=== PATIENT | male | born 1965 | race Caucasian/White ===

== ENCOUNTER 2024-05-01 11:18 | Emergency (ER) | payer BC ==
[~2024-05-01] VITALS: Ht 172.7 cm; Wt 74.8 kg
[2024-05-01 11:54] LABS: BASOPHILS # (AUTO) 0.1 K/UL (0.0-0.2); BASOPHILS % (AUTO) 0.9 % (0.0-2.0); EOSINOPHILS # (AUTO) 0.1 K/uL (0.0-0.7); EOSINOPHILS % (AUTO) 1.2 % (0.0-7.0); HEMATOCRIT 42.9 % (36.7-47.1); HEMOGLOBIN 14.6 g/dL (12.5-16.3); LYMPHOCYTES # (AUTO) 1.1 K/uL (0.8-4.8); LYMPHOCYTES % (AUTO) 15.3 % (20.5-51.5); MEAN CORPUSCULAR HEMOGLOBIN 29.7 uug (23.8-33.4); MEAN CORPUSCULAR HGB CONC 34 g/dL (32.5-36.3); MEAN CORPUSCULAR VOLUME 87.2 fL (73.0-96.2); MONOCYTES # (AUTO) 0.4 K/uL (0.1-1.30); MONOCYTES % (AUTO) 5.3 % (0.0-11.0); NEUTROPHILS # (AUTO) 5.7 K/uL (1.8-8.9); NEUTROPHILS % (AUTO) 77.3 % (38.5-71.5); PLATELET COUNT (AUTO) 257 K/uL (152-348); RED BLOOD CELL COUNT(AUTO) 4.93 MIL/uL (4.06-5.63); RED CELL DISTRIBUTION WIDTH 12.8 % (12.1-16.2); WHITE BLOOD COUNT (AUTO) 7.4 K/uL (3.6-10.2)
[2024-05-01 11:56] LABS: CALCIUM 8.7 mg/dL (8.5-10.1); CARBON DIOXIDE 29 mmol/L (21-32); CHLORIDE 102 mmol/L (98-107); CREATININE 0.8 mg/dL (0.6-1.3); POTASSIUM 3.9 mmol/L (3.5-5.1); SODIUM SERUM 137 mmol/L (136-145); UREA NITROGEN, BLOOD 19 mg/dL (7-18)
[2024-05-01 11:57] LABS: DIFFERENTIAL COMMENT 1
[2024-05-01] MEDS ORDERED: AMLO10TA4 PO (11:58)
[2024-05-01] MEDS ORDERED: VALS80TA2 PO (11:58)
[2024-05-01 12:02] LABS: GLUCOSE 434 mg/dL (74-106)
[2024-05-01 12:10] LABS: ALANINE AMINOTRANSFERASE 15 U/L (16-63); ALBUMIN 3.5 g/dL (3.4-5.0); ALKALINE PHOSPHATASE 102 U/L (50-136); ASPARTATE AMINOTRANSFERASE < 5 U/L (15-37); BILIRUBIN,DIRECT 0.1 mg/dL (0.0-0.2); BILIRUBIN,TOTAL 0.6 mg/dL (0.2-1.0); NT-PRO BNP 41 pg/mL (0-125); TOTAL PROTEIN, SERUM 7.1 g/dL (6.4-8.2)
[2024-05-01 12:26] VITALS: BP 155/87; TEMP 98.2; O2SAT 98
[2024-05-01] MEDS ORDERED: ATOR40TA PO (12:30)
[2024-05-01] MEDS ORDERED: INSU100I26 SQ (12:30)
[2024-05-01] MEDS ORDERED: METF-494 PO (12:30)
[2024-05-01] MEDS ORDERED: [UNRECOGNIZED DRUG - OTHER] SQ (12:30)
== END 2024-05-01 12:32 | disposition home or self-care (01) ==
LOC: ER 11:18
DX: I10 Essential (primary) hypertension (principal); Z79.4 Long term (current) use of insulin; Z79.84 Long term (current) use of oral hypoglycemic drugs; Z79.899 Other long term (current) drug therapy
CPT/HCPCS: 36415; 84484; 85025; 85730; A4606; A4663